=== PATIENT | male | born 1980 | race Caucasian/White ===

== ENCOUNTER 2017-03-30 20:40 | Emergency (ER) | payer MEDICAID | END 2017-03-30 21:31 | disposition home or self-care (01) | LOC: E/R 21:31 | DX: S39.012A Strain of muscle, fascia and tendon of lower back, initial encounter (principal); S63.91XA Sprain of unspecified part of right wrist and hand, initial encounter; S63.92XA Sprain of unspecified part of left wrist and hand, initial encounter; V49.40XA Driver injured in collision with unspecified motor vehicles in traffic accident, initial encounter | CPT/HCPCS: 99283; Z7502 ==